=== PATIENT | male | born 1960 | race Asian ===

== ENCOUNTER 2017-09-10 18:57 | Emergency (ER) | payer OTHER ==
[~2017-09-10] VITALS: Ht 172.7 cm; Wt 83.5 kg
[2017-09-10 19:14] VITALS: BP 149/78
--- NOTE | 2017-09-10 19:37 | NUR ---
PATIENT AMBULATED TO ER CHAIR C
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
[2017-09-10] MEDS ORDERED: BACITRACIN OINT 500 UNITS/GM PKT TP ONE (20:50)
[2017-09-10 21:04] VITALS: BP 140/83
--- NOTE | 2017-09-10 21:04 | NUR ---
Patient discharged with v/s stable. Written and verbal after care instructions given and explained. Patient alert, oriented and verbalized understanding of instructions. Ambulatory with steady gait. All questions addressed prior to discharge. ID band removed. Patient advised to follow up with PMD. Rx of NEOSPORIN, AND ACETAMINOPHEN given. Patient educated on indication of medication including possible reaction and side effects. Opportunity to ask questions provided and answered.
== END 2017-09-10 21:04 | disposition home or self-care (01) ==
LOC: MED 18:57
DX: T23.071A Burn of unspecified degree of right wrist, initial encounter (principal); R03.0 Elevated blood-pressure reading, without diagnosis of hypertension; X15.8XXA Contact with other hot household appliances, initial encounter; Y93.89 Activity, other specified; Y92.89 Other specified places as the place of occurrence of the external cause; Y99.8 Other external cause status
CPT/HCPCS: 99283